=== PATIENT | male | born 1955 | race Caucasian/White ===

== ENCOUNTER 2017-02-07 10:15 | Inpatient (IN) | payer OTHER ==
[~2017-02-07] VITALS: Ht 175.3 cm; Wt 118.6 kg
[2017-02-07] VITALS (11 sets, daily range): BP systolic 99–125; BP diastolic 60–71
[~2017-02-07 10:15] MED LIST: ALLOPURINOL100 MG PO; ALPRAZOLAM0.5 MG PO; BAYER CHEWABLE81 MG PO; BENEMID500 MG PO; COLCRYS0.6 MG PO; GLUCOPHAGE XR750 MG PO; LIPITOR10 MG PO; LISINOPRIL10 MG PO; LISINOPRIL40 MG PO; LOPRESSOR50 MG PO; LOTRISONE15 GM TP; Lopressor PO; MELOXICAM15 MG PO; MELOXICAM7.5 MG PO; METFORMIN HCL500 M1 PO; NORVASC10 MG PO; PROTONIX40 MG PO; TOPROL XL100 MG PO; ZESTRIL20 MG PO; Zestril,Prinivil PO
[2017-02-07] MEDS ORDERED: OMEPRAZOLE20 MG PO (12:14)
[2017-02-07] MEDS ORDERED: MULTIVITAMIN1 EAC2 PO (12:16)
[2017-02-07] MEDS ORDERED: COLCRYS0.6 MG PO (12:17)
[2017-02-07] MEDS ORDERED: FERROUS SULFAT325 MG PO (12:17)
[2017-02-07] MEDS ORDERED: TRAMADOL HCL50 MG PO (12:17)
[2017-02-07 16:46] LABS: POINT-OF-CARE METER ID UU14188625
[2017-02-07 18:59] LABS: FERRITIN 21 NG/ML (22-322)
[2017-02-07 19:52] LABS: IRON 44 MCG/DL (35-150)
[2017-02-07 21:31] LABS: HEMATOCRIT 24.8 % (38.0-50.0); MCH 30.7 PG (29.0-34.0); MCHC 32.3 G/DL (30.0-36.0); MEAN PLAT.VOLUME 10.7 uM^3 (9.0-12.4); NRBC (%) 0.4 /100 WBC (0-0); PLATELET COUNT 175 K/uL (156-360); RBC DIS.WIDTH-CV 15.4 % (11.8-14.6); RBC DIS.WIDTH-SD 49.6 % (39-53); RED BLOOD COUNT 2.61 M/uL (4.00-5.50); WHITE BLOOD COUNT 8.1 K/uL (4.1-10.2)
[2017-02-07 21:35] LABS: INTER. NORMALIZED RATIO 1.2; PROTHROMBIN TIME 13.2 SEC (10.2-12.9)
[2017-02-07 21:38] LABS: PTT 28.8 SEC (25-37)
[2017-02-08] VITALS (7 sets, daily range): BP systolic 102–116; BP diastolic 55–69
[2017-02-08 06:21] LABS: HEMATOCRIT 26.3 % (38.0-50.0); MCH 30.1 PG (29.0-34.0); MCHC 32.3 G/DL (30.0-36.0); MCV 93.3 FL (86-99); MEAN PLAT.VOLUME 10.9 uM^3 (9.0-12.4); PLATELET COUNT 162 K/uL (156-360); RBC DIS.WIDTH-CV 15.8 % (11.8-14.6); RBC DIS.WIDTH-SD 50.9 % (39-53); RED BLOOD COUNT 2.82 M/uL (4.00-5.50); WHITE BLOOD COUNT 5.4 K/uL (4.1-10.2)
[2017-02-08 06:35] LABS: INTER. NORMALIZED RATIO 1.1; PROTHROMBIN TIME 12.8 SEC (10.2-12.9)
[2017-02-08 06:37] LABS: PTT 27.3 SEC (25-37)
[2017-02-08 06:41] LABS: ALKALINE PHOSPHATASE 81 IU/L (3-129); ANION GAP 6 MEQ/L (2-14); CHLORIDE 104 MEQ/L (99-109); GFR ESTIMATE (CALCULATED) > 59 mL/min/; GLUCOSE 152 mg/dL (70-99); SAMPLE HEMOLYSIS CHECK 0; SAMPLE ICTERIC CHECK 0; SAMPLE LIPEMIA CHECK 0; SODIUM 138 MEQ/L (136-147); UREA NITROGEN (BUN) 15 mg/dL (9-23)
[2017-02-08 06:43] LABS: TOTAL BILIRUBIN 1.2 MG/DL (0.0-1.0)
[2017-02-08 08:38] LABS: POINT-OF-CARE METER ID UU14188625
[2017-02-08 09:08] LABS: HEMATOCRIT 28.4 % (38.0-50.0); MCHC 33.1 G/DL (30.0-36.0); MCV 93.7 FL (86-99); MEAN PLAT.VOLUME 10.8 uM^3 (9.0-12.4); NRBC (%) 0.3 /100 WBC (0-0); PLATELET COUNT 186 K/uL (156-360); RBC DIS.WIDTH-CV 16.1 % (11.8-14.6); RBC DIS.WIDTH-SD 52.4 % (39-53); RED BLOOD COUNT 3.03 M/uL (4.00-5.50); WHITE BLOOD COUNT 6.2 K/uL (4.1-10.2)
[2017-02-08 13:10] LABS: POINT-OF-CARE METER ID UU13113717
[2017-02-08 15:46] LABS: POINT-OF-CARE METER ID UU14188625
[2017-02-08 15:46] LABS: HEMATOCRIT 27.2 % (38.0-50.0); MCH 30.7 PG (29.0-34.0); MCHC 32.7 G/DL (30.0-36.0); MCV 93.8 FL (86-99); MEAN PLAT.VOLUME 10.4 uM^3 (9.0-12.4); NRBC (%) 0.3 /100 WBC (0-0); PLATELET COUNT 168 K/uL (156-360); RBC DIS.WIDTH-SD 52.2 % (39-53); WHITE BLOOD COUNT 6.2 K/uL (4.1-10.2)
[2017-02-08 18:30] LABS: POINT-OF-CARE METER ID UU13113819
[2017-02-08 19:35] LABS: EOSINOPHIL (%) 2.8 % (0-5); EOSINOPHIL COUNT 0.2 K/uL (0-0.3); HEMATOCRIT 29.7 % (38.0-50.0); IMMATURE GRANULOCYTE (%) 0.8 % (0.0-0.7); IMMATURE GRANULOCYTE COUNT 0.1 K/uL; INSTRUMENT ABS NEUTROPHIL CT 6.3 K/uL; LYMPHOCYTE COUNT 1.3 K/uL (1.0-2.8); MCH 30.2 PG (29.0-34.0); MCHC 32.3 G/DL (30.0-36.0); MCV 93.4 FL (86-99); MEAN PLAT.VOLUME 10.9 uM^3 (9.0-12.4); MONOCYTE (%) 5.1 % (3-12); MONOCYTE COUNT 0.4 K/uL (0-0.8); NEUTROPHIL (%) 75.3 % (45-76); NEUTROPHIL COUNT 6.3 K/uL (1.8-6.4); PLATELET COUNT 189 K/uL (156-360); RBC DIS.WIDTH-CV 16.1 % (11.8-14.6); RBC DIS.WIDTH-SD 52.4 % (39-53); RED BLOOD COUNT 3.18 M/uL (4.00-5.50); WHITE BLOOD COUNT 8.3 K/uL (4.1-10.2)
[2017-02-08 19:36] LABS: HEMATOCRIT 29.6 % (38.0-50.0); MCH 30.5 PG (29.0-34.0); MCHC 32.4 G/DL (30.0-36.0); MEAN PLAT.VOLUME 10.8 uM^3 (9.0-12.4); PLATELET COUNT 178 K/uL (156-360); RBC DIS.WIDTH-CV 16.2 % (11.8-14.6); RBC DIS.WIDTH-SD 52.3 % (39-53); RED BLOOD COUNT 3.15 M/uL (4.00-5.50); WHITE BLOOD COUNT 8.2 K/uL (4.1-10.2)
[2017-02-08 21:46] LABS: POINT-OF-CARE METER ID UU13113717
[2017-02-09] VITALS (7 sets, daily range): BP systolic 118–134; BP diastolic 63–71
[2017-02-09 02:38] LABS: HEMATOCRIT 25.1 % (38.0-50.0); MCH 30.1 PG (29.0-34.0); MCHC 32.7 G/DL (30.0-36.0); MCV 92.3 FL (86-99); MEAN PLAT.VOLUME 10.6 uM^3 (9.0-12.4); PLATELET COUNT 163 K/uL (156-360); RBC DIS.WIDTH-CV 15.7 % (11.8-14.6); RBC DIS.WIDTH-SD 50.5 % (39-53); RED BLOOD COUNT 2.72 M/uL (4.00-5.50); WHITE BLOOD COUNT 6.1 K/uL (4.1-10.2)
[2017-02-09 06:03] LABS: EOSINOPHIL (%) 2.8 % (0-5); EOSINOPHIL COUNT 0.2 K/uL (0-0.3); HEMATOCRIT 26.8 % (38.0-50.0); IMMATURE GRANULOCYTE (%) 0.5 % (0.0-0.7); INSTRUMENT ABS NEUTROPHIL CT 4.8 K/uL; LYMPHOCYTE COUNT 0.7 K/uL (1.0-2.8); MCH 29.8 PG (29.0-34.0); MCHC 32.1 G/DL (30.0-36.0); MCV 92.7 FL (86-99); MEAN PLAT.VOLUME 10.9 uM^3 (9.0-12.4); MONOCYTE (%) 6.6 % (3-12); MONOCYTE COUNT 0.4 K/uL (0-0.8); NEUTROPHIL (%) 78.1 % (45-76); NEUTROPHIL COUNT 4.8 K/uL (1.8-6.4); NRBC (%) 0.3 /100 WBC (0-0); PLATELET COUNT 171 K/uL (156-360); RBC DIS.WIDTH-CV 15.8 % (11.8-14.6); RED BLOOD COUNT 2.89 M/uL (4.00-5.50); WHITE BLOOD COUNT 6.2 K/uL (4.1-10.2)
[2017-02-09 06:32] LABS: ANION GAP 8 MEQ/L (2-14); CHLORIDE 106 MEQ/L (99-109); GFR ESTIMATE (CALCULATED) > 59 mL/min/; GLUCOSE 142 mg/dL (70-99); POTASSIUM 4.3 MEQ/L (3.7-5.4); SAMPLE HEMOLYSIS CHECK 0; SAMPLE ICTERIC CHECK 0; SAMPLE LIPEMIA CHECK 0; SODIUM 142 MEQ/L (136-147); UREA NITROGEN (BUN) 11 mg/dL (9-23)
[2017-02-09 08:03] LABS: POINT-OF-CARE METER ID UU14174225
[2017-02-09 13:30] LABS: POINT-OF-CARE METER ID UU13113717
[2017-02-09 17:05] LABS: HEMATOCRIT 28.2 % (38.0-50.0); MCH 30.8 PG (29.0-34.0); MCV 93.4 FL (86-99); MEAN PLAT.VOLUME 10.2 uM^3 (9.0-12.4); PLATELET COUNT 172 K/uL (156-360); RBC DIS.WIDTH-CV 15.8 % (11.8-14.6); RBC DIS.WIDTH-SD 51.3 % (39-53); RED BLOOD COUNT 3.02 M/uL (4.00-5.50); WHITE BLOOD COUNT 5.4 K/uL (4.1-10.2)
[2017-02-09 17:27] LABS: POINT-OF-CARE METER ID UU13113717
[2017-02-10 00:20] VITALS: BP 135/71
[2017-02-10 01:24] LABS: HEMATOCRIT 27.4 % (38.0-50.0); MCH 30.1 PG (29.0-34.0); MCHC 32.5 G/DL (30.0-36.0); MCV 92.6 FL (86-99); MEAN PLAT.VOLUME 10.5 uM^3 (9.0-12.4); PLATELET COUNT 158 K/uL (156-360); RBC DIS.WIDTH-CV 15.7 % (11.8-14.6); RBC DIS.WIDTH-SD 50.8 % (39-53); RED BLOOD COUNT 2.96 M/uL (4.00-5.50); WHITE BLOOD COUNT 5.3 K/uL (4.1-10.2)
[2017-02-10 06:52] LABS: EOSINOPHIL (%) 3.5 % (0-5); EOSINOPHIL COUNT 0.2 K/uL (0-0.3); HEMATOCRIT 27.7 % (38.0-50.0); IMMATURE GRANULOCYTE (%) 0.4 % (0.0-0.7); INSTRUMENT ABS NEUTROPHIL CT 2.9 K/uL; MCH 29.6 PG (29.0-34.0); MCHC 31.8 G/DL (30.0-36.0); MCV 93.3 FL (86-99); MEAN PLAT.VOLUME 11.3 uM^3 (9.0-12.4); MONOCYTE (%) 8.8 % (3-12); MONOCYTE COUNT 0.4 K/uL (0-0.8); NEUTROPHIL COUNT 2.9 K/uL (1.8-6.4); PLATELET COUNT 150 K/uL (156-360); RBC DIS.WIDTH-CV 15.7 % (11.8-14.6); RBC DIS.WIDTH-SD 51.5 % (39-53); RED BLOOD COUNT 2.97 M/uL (4.00-5.50); WHITE BLOOD COUNT 4.6 K/uL (4.1-10.2)
[2017-02-10 07:17] LABS: ANION GAP 8 MEQ/L (2-14); CHLORIDE 109 MEQ/L (99-109); GFR ESTIMATE (CALCULATED) > 59 mL/min/; GLUCOSE 123 mg/dL (70-99); POTASSIUM 3.6 MEQ/L (3.7-5.4); SAMPLE HEMOLYSIS CHECK 0; SAMPLE ICTERIC CHECK 0; SAMPLE LIPEMIA CHECK 0; SODIUM 142 MEQ/L (136-147); UREA NITROGEN (BUN) 8 mg/dL (9-23)
[2017-02-10 08:04] VITALS: BP 138/76
[2017-02-10 08:22] LABS: POINT-OF-CARE METER ID UU14188625
[2017-02-10 11:03] LABS: HEMATOCRIT 28.4 % (38.0-50.0); MCH 29.9 PG (29.0-34.0); MCV 93.4 FL (86-99); MEAN PLAT.VOLUME 10.4 uM^3 (9.0-12.4); PLATELET COUNT 149 K/uL (156-360); RBC DIS.WIDTH-CV 15.6 % (11.8-14.6); RBC DIS.WIDTH-SD 51.8 % (39-53); RED BLOOD COUNT 3.04 M/uL (4.00-5.50); WHITE BLOOD COUNT 4.1 K/uL (4.1-10.2)
[2017-02-10 12:39] LABS: POINT-OF-CARE METER ID UU13113717
[2017-02-10 15:51] LABS: HEMATOCRIT 27.6 % (38.0-50.0); MCH 29.3 PG (29.0-34.0); MCHC 31.2 G/DL (30.0-36.0); MCV 93.9 FL (86-99); MEAN PLAT.VOLUME 10.3 uM^3 (9.0-12.4); PLATELET COUNT 160 K/uL (156-360); RBC DIS.WIDTH-CV 15.2 % (11.8-14.6); RED BLOOD COUNT 2.94 M/uL (4.00-5.50); WHITE BLOOD COUNT 4.6 K/uL (4.1-10.2)
[2017-02-10 16:09] VITALS: BP 134/77
[2017-02-10 17:36] LABS: POINT-OF-CARE METER ID UU13113717
[2017-02-11 00:06] VITALS: BP 159/73
[2017-02-11 03:00] LABS: HEMATOCRIT 29.1 % (38.0-50.0); MCH 29.9 PG (29.0-34.0); MCHC 32.3 G/DL (30.0-36.0); MCV 92.7 FL (86-99); MEAN PLAT.VOLUME 10.5 uM^3 (9.0-12.4); PLATELET COUNT 171 K/uL (156-360); RBC DIS.WIDTH-CV 15.1 % (11.8-14.6); RBC DIS.WIDTH-SD 50.4 % (39-53); RED BLOOD COUNT 3.14 M/uL (4.00-5.50); WHITE BLOOD COUNT 7.3 K/uL (4.1-10.2)
[2017-02-11 07:28] LABS: EOSINOPHIL (%) 3.5 % (0-5); EOSINOPHIL COUNT 0.2 K/uL (0-0.3); HEMATOCRIT 27.2 % (38.0-50.0); IMMATURE GRANULOCYTE (%) 0.4 % (0.0-0.7); INSTRUMENT ABS NEUTROPHIL CT 4.1 K/uL; LYMPHOCYTE COUNT 0.7 K/uL (1.0-2.8); MCH 29.9 PG (29.0-34.0); MCV 93.5 FL (86-99); MEAN PLAT.VOLUME 10.8 uM^3 (9.0-12.4); MONOCYTE (%) 7.6 % (3-12); MONOCYTE COUNT 0.4 K/uL (0-0.8); NEUTROPHIL (%) 74.5 % (45-76); NEUTROPHIL COUNT 4.1 K/uL (1.8-6.4); PLATELET COUNT 163 K/uL (156-360); RBC DIS.WIDTH-CV 14.8 % (11.8-14.6); RBC DIS.WIDTH-SD 49.9 % (39-53); RED BLOOD COUNT 2.91 M/uL (4.00-5.50); WHITE BLOOD COUNT 5.4 K/uL (4.1-10.2)
[2017-02-11 08:01] VITALS: BP 139/67
[2017-02-11 08:01] LABS: POINT-OF-CARE METER ID UU14188625
[2017-02-11 12:00] LABS: POINT-OF-CARE METER ID UU14188625
[2017-02-11] MEDS ORDERED: PANTOPRAZOLE SO40 MG PO (14:04)
[2017-02-11] MEDS ORDERED: SUCRALFATE1 GM PO (14:04)
== END 2017-02-11 16:50 | disposition home or self-care (01) | DRG 378 ==
LOC: EME 10:15 → ENRESERV 11:56 → EDOF 11:56 → 5SOUTH 11:56 → ENRESERV 12:20 → 5SOUTH 14:33
PROVIDERS: Hospitalist; Internal Medicine; Internal Medicine Gastroenterology; Specialist; Student in an Organized Health Care Education/Training Program
PROC: 30253N1 (ICD-10-PCS; 2017-02-07)
PROC: 3E0G8GC Introduction of Other Therapeutic Substance into Upper GI, Via Natural or Artificial Opening Endoscopic (ICD-10-PCS; principal; 2017-02-08)
DX: K26.4 Chronic or unspecified duodenal ulcer with hemorrhage (principal); D64.9 Anemia, unspecified; I10 Essential (primary) hypertension; K44.9 Diaphragmatic hernia without obstruction or gangrene; E11.9 Type 2 diabetes mellitus without complications; E78.5 Hyperlipidemia, unspecified; M10.9 Gout, unspecified; R53.1 Weakness; M19.90 Unspecified osteoarthritis, unspecified site; G47.30 Sleep apnea, unspecified; I47.1 Supraventricular tachycardia; I42.9 Cardiomyopathy, unspecified; R01.1 Cardiac murmur, unspecified; Z88.6 Allergy status to analgesic agent; Z87.891 Personal history of nicotine dependence; D62 Acute posthemorrhagic anemia; K29.70 Gastritis, unspecified, without bleeding
CPT/HCPCS: 36415; 80048; 80053; 80061; 82043; 82570; 82728; 82746; 82948; 83036; 83540; 84466; 85014; 85018; 85025; 85027; 85610; 85730; 86850; 86900; 86901; 86920; 93005; 99281; 99285; C9113; G0103; J1815; J7042; P9016

== ENCOUNTER → 2017-04-18 | Outpatient (CLI) | payer OTHER ==
[~2017-04-18] MED LIST changes: +FERROUS SULFAT325 MG PO; +MULTIVITAMIN1 EAC2 PO; +OMEPRAZOLE20 MG PO; +PANTOPRAZOLE SO40 MG PO; +SUCRALFATE1 GM PO; +TRAMADOL HCL50 MG PO
[2017-04-20 17:45] LABS: Flow Clinical Information NOT PROVIDED (()); Flow Number of Markers 22 (()); Flow Spec Viability 66 % (())
== END | disposition home or self-care (01) ==
LOC: OPR 08:22 → EDSTATUS 09:00
PROVIDERS: Specialist
DX: R19.09 Other intra-abdominal and pelvic swelling, mass and lump (principal); I10 Essential (primary) hypertension; E11.9 Type 2 diabetes mellitus without complications; G47.30 Sleep apnea, unspecified; D64.9 Anemia, unspecified; I47.1 Supraventricular tachycardia
CPT/HCPCS: 77012; 82948; 88305; J3010

== ENCOUNTER 2017-08-27 18:12 | Inpatient (IN) | payer OTHER ==
[~2017-08-27] VITALS: Ht 175.3 cm; Wt 123.9 kg
[~2017-08-27 18:12] MED LIST changes: +B-12500 MC1 SL
[2017-08-27 18:32] LABS: HEMATOCRIT 35.9 % (38.0-50.0); HEMOGLOBIN 11.6 G/DL (12.5-16.6); MCH 28.6 PG (29.0-34.0); MCHC 32.3 G/DL (30.0-36.0); MCV 88.4 FL (86-99); NRBC (%) 0.4 /100 WBC (0-0); PLATELET COUNT 189 K/uL (156-360); RBC DIS.WIDTH-CV 21.2 % (11.8-14.6); RED BLOOD COUNT 4.06 M/uL (4.00-5.50); WHITE BLOOD COUNT 8.5 K/uL (4.1-10.2)
[2017-08-27 18:42] LABS: CHLORIDE 109 mEq/L (99-109); POTASSIUM 5.3 mEq/L (3.7-5.4)
[2017-08-27 18:43] LABS: SODIUM 142 mEq/L (136-147)
[2017-08-27 18:44] LABS: GLUCOSE 124 mg/dL (70-99)
[2017-08-27 18:48] LABS: CREATININE 1.2 mg/dL (0.6-1.3); GFR ESTIMATE (CALCULATED) > 59 mL/min/ (58.99-99999)
[2017-08-27 18:49] LABS: UREA NITROGEN (BUN) 10 mg/dL (9-23)
[2017-08-27 18:53] LABS: TROP-I INTERPRETATION NEGATIVE; TROPONIN-I < 0.01 ng/mL (0.0-0.30)
[2017-08-27 20:24] LABS: BASE EXCESS -0.6 mEq/L (-3 to +3); BICARBONATE 22.1 mEq/L (22-26); CARBOXY HGB 1.2 % (0-5); METHEMOGLOBIN 0.7 % (0-1.5); PCO2 29 mm Hg (35-45); PO2 60 mm Hg (80-100); pH 7.49 (7.35-7.45)
[2017-08-27 20:25] LABS: COMMENTS - BLOOD GASES C+; DEVICE NC; O2 FLOW 4 L/MIN; SITE LR; TOTAL RESP RATE 27 resp/min
[2017-08-27] MEDS ORDERED: ZYLOPRIM300 MG PO (21:03)
[2017-08-27] MEDS ORDERED: TYLENOL EXTRA500 MG PO (21:07)
[2017-08-27] MEDS ORDERED: TUMS500 MG PO (21:07)
[2017-08-27 21:51] LABS: ALBUMIN 4.1 g/dL (3.2-4.8)
[2017-08-27 21:54] LABS: TOTAL PROTEIN 7.8 g/dL (6.4-8.3)
[2017-08-27 21:56] LABS: TOTAL BILIRUBIN 0.8 mg/dL (0.0-1.0)
[2017-08-27 21:57] LABS: ALKALINE PHOSPHATASE 126 IU/L (3-129)
[2017-08-27 21:59] LABS: AST (GOT) 34 IU/L (2-34); DIRECT BILIRUBIN 0.2 mg/dL (0.0-0.3)
[2017-08-27 22:00] LABS: ALT (GPT) 31 IU/L (3-49)
[2017-08-28 00:20] VITALS: BP 123/59
[2017-08-28 03:51] VITALS: BP 123/59
[2017-08-28 05:21] LABS: HEMATOCRIT 29.6 % (38.0-50.0); MCH 27.5 PG (29.0-34.0); MCHC 32.1 G/DL (30.0-36.0); MCV 85.8 FL (86-99); RBC DIS.WIDTH-CV 21.3 % (11.8-14.6); RBC DIS.WIDTH-SD 66.2 % (39-53); RED BLOOD COUNT 3.45 M/uL (4.00-5.50); WHITE BLOOD COUNT 7.7 K/uL (4.1-10.2)
[2017-08-28 05:33] LABS: HEMOGLOBIN 9.5 G/DL (12.5-16.6)
[2017-08-28 05:35] LABS: BASOPHIL (%) 0.3 % (0-1); EOSINOPHIL (%) 0.5 % (0-5); IMMATURE GRANULOCYTE (%) 0.4 % (0.0-0.7); LYMPHOCYTE (%) 8.7 % (15-42); LYMPHOCYTE COUNT 0.7 K/uL (1.0-2.8); MONOCYTE (%) 4.6 % (3-12); MONOCYTE COUNT 0.4 K/uL (0-0.8); NEUTROPHIL (%) 85.5 % (45-76); NEUTROPHIL COUNT 6.6 K/uL (1.8-6.4); PLATELET COUNT 128 K/uL (156-360)
[2017-08-28 05:39] LABS: CHLORIDE 108 MEQ/L (99-109); CREATININE 1.2 MG/DL (0.6-1.3); GFR ESTIMATE (CALCULATED) > 59 mL/min/ (58.99-99999); GLUCOSE 184 mg/dL (70-99); SODIUM 140 MEQ/L (136-147); UREA NITROGEN (BUN) 14 mg/dL (9-23)
[2017-08-28 05:45] LABS: POTASSIUM 4.2 MEQ/L (3.7-5.4)
[2017-08-28 07:40] VITALS: BP 116/58
[2017-08-28 11:52] VITALS: BP 111/56
[2017-08-28 17:06] VITALS: BP 112/57
[2017-08-28 19:45] VITALS: BP 103/50
[2017-08-28] MEDS ORDERED: COLCRYS0.6 MG PO (21:12)
[2017-08-29] VITALS (7 sets, daily range): BP systolic 102–144; BP diastolic 53–73
[2017-08-29 05:21] LABS: APPEARANCE CLEAR ((CLEAR)); BILIRUBIN NEGATIVE; BLOOD NEGATIVE; COLOR YELLOW ((YELLOW)); GLUCOSE (STRIP) NEGATIVE; KETONES NEGATIVE; LEUKOCYTES NEGATIVE; NITRITE NEGATIVE; PROTEIN (STRIP) NEGATIVE; SPECIFIC GRAVITY 1.023 (1.000-1.030); UCUL ADDED? NO; UROBILINOGEN 0.2 MG/DL (0.2-1.0)
[2017-08-29 09:42] LABS: BASOPHIL (%) 0.1 % (0-1); EOSINOPHIL (%) 0 % (0-5); HEMOGLOBIN 9.2 G/DL (12.5-16.6); IMMATURE GRANULOCYTE (%) 1.2 % (0.0-0.7); LYMPHOCYTE (%) 10.7 % (15-42); MCH 27.7 PG (29.0-34.0); MCHC 31.7 G/DL (30.0-36.0); MCV 87.3 FL (86-99); MONOCYTE (%) 9.9 % (3-12); MONOCYTE COUNT 0.9 K/uL (0-0.8); NEUTROPHIL (%) 78.1 % (45-76); NEUTROPHIL COUNT 7.2 K/uL (1.8-6.4); PLATELET COUNT 166 K/uL (156-360); RBC DIS.WIDTH-CV 21.6 % (11.8-14.6); RBC DIS.WIDTH-SD 68.3 % (39-53); RED BLOOD COUNT 3.32 M/uL (4.00-5.50); WHITE BLOOD COUNT 9.2 K/uL (4.1-10.2)
[2017-08-29 10:18] LABS: CHLORIDE 107 MEQ/L (99-109); CREATININE 1.2 MG/DL (0.6-1.3); GFR ESTIMATE (CALCULATED) > 59 mL/min/ (58.99-99999); GLUCOSE 227 mg/dL (70-99); POTASSIUM 4.5 MEQ/L (3.7-5.4); SODIUM 138 MEQ/L (136-147); UREA NITROGEN (BUN) 21 mg/dL (9-23)
[2017-08-30 04:00] VITALS: BP 161/74
[2017-08-30 08:38] VITALS: BP 141/67
[2017-08-30 11:33] VITALS: BP 151/70
[2017-08-30] MEDS ORDERED: AUGMENTIN875 MG PO (12:56)
== END 2017-08-30 13:59 | disposition home or self-care (01) | DRG 193 ==
LOC: EME 18:12 → EDOF 22:57 → 4EAST 22:57 → ENRESERV 23:00 → 4EAST 08-28 00:17 → ENPENDDIS 08-30 → 4EAST 08-30 13:59
PROVIDERS: Emergency Medicine; Hospitalist; Internal Medicine
PROC: 5A09357 Assistance with Respiratory Ventilation, Less than 24 Consecutive Hours, Continuous Positive Airway Pressure (ICD-10-PCS; principal; 2017-08-27)
DX: J15.9 Unspecified bacterial pneumonia (principal); J96.21 Acute and chronic respiratory failure with hypoxia; C49.A3 Gastrointestinal stromal tumor of small intestine; J91.8 Pleural effusion in other conditions classified elsewhere; E11.9 Type 2 diabetes mellitus without complications; I47.1 Supraventricular tachycardia; J81.1 Chronic pulmonary edema; T45.1X5A Adverse effect of antineoplastic and immunosuppressive drugs, initial encounter; E66.01 Morbid (severe) obesity due to excess calories; Z68.41 Body mass index [BMI] 40.0-44.9, adult; I11.9 Hypertensive heart disease without heart failure; M19.90 Unspecified osteoarthritis, unspecified site; M10.9 Gout, unspecified; G47.33 Obstructive sleep apnea (adult) (pediatric); E78.5 Hyperlipidemia, unspecified; D64.9 Anemia, unspecified; K26.9 Duodenal ulcer, unspecified as acute or chronic, without hemorrhage or perforation; Z79.899 Other long term (current) drug therapy; Z79.84 Long term (current) use of oral hypoglycemic drugs
CPT/HCPCS: 36415; 36600; 71045; 71046; 71275; 80047; 80048; 80053; 80076; 80202; 81003; 82803; 82948; 83605; 83880; 84484; 85025; 85027; 87040; 87070; 87205; 87449; 87502; 93005; 93306; 93970; 94002; 94640; 94640 76; 94660; 94760; 94799; 96360; 96361; 99202; 99281; 99285; J1650; J1815; J2060; J2543; J2930; J3370; J7030; J7050; J7512

== ENCOUNTER → 2017-11-07 | Outpatient (CLI) | payer OTHER ==
[~2017-11-07] VITALS: Ht 175.3 cm; Wt 116.3 kg
[~2017-11-07] MED LIST changes: +AUGMENTIN875 MG PO; +LOVENOX100 MG/1 M SC; +STOOL SOFTNER; +TPN IV; +TUMS500 MG PO; +TYLENOL EXTRA500 MG PO; +ZYLOPRIM300 MG PO; +[UNRECOGNIZED DRUG - REMARK]; +[UNRECOGNIZED DRUG - REMARK]
[2017-11-07 07:06] VITALS: BP 123/58
== END | disposition home or self-care (01) ==
LOC: IVINF 06:40
DX: Z45.2 Encounter for adjustment and management of vascular access device (principal)
CPT/HCPCS: 36593; 71045; J2997

== ENCOUNTER 2017-11-20 07:14 | Emergency (ER) | payer OTHER ==
[~2017-11-20] VITALS: Ht 175.3 cm; Wt 107.8 kg
[2017-11-20 08:05] LABS: BASOPHIL (%) 0.1 % (0-1); EOSINOPHIL (%) 0.8 % (0-5); EOSINOPHIL COUNT 0.1 K/uL (0-0.3); HEMATOCRIT 28.8 % (38.0-50.0); HEMOGLOBIN 9.2 G/DL (12.5-16.6); IMMATURE GRANULOCYTE (%) 0.1 % (0.0-0.7); LYMPHOCYTE (%) 5.4 % (15-42); LYMPHOCYTE COUNT 0.4 K/uL (1.0-2.8); MCH 27.9 PG (29.0-34.0); MCHC 31.9 G/DL (30.0-36.0); MCV 87.3 FL (86-99); MONOCYTE (%) 7.9 % (3-12); MONOCYTE COUNT 0.6 K/uL (0-0.8); NEUTROPHIL (%) 85.7 % (45-76); NEUTROPHIL COUNT 6.5 K/uL (1.8-6.4); PLATELET COUNT 158 K/uL (156-360); RBC DIS.WIDTH-CV 14.8 % (11.8-14.6); RBC DIS.WIDTH-SD 47.4 % (39-53); WHITE BLOOD COUNT 7.6 K/uL (4.1-10.2)
[2017-11-20 08:13] LABS: INTER. NORMALIZED RATIO 1.1
[2017-11-20 08:50] LABS: ALBUMIN 3.4 G/DL (3.2-4.8); ALKALINE PHOSPHATASE 96 IU/L (3-129); ALT (GPT) 32 IU/L (3-49); AST (GOT) 36 IU/L (2-34); CHLORIDE 104 MEQ/L (99-109); CREATININE 0.8 MG/DL (0.6-1.3); GFR ESTIMATE (CALCULATED) > 59 mL/min/ (58.99-99999); GLUCOSE 227 mg/dL (70-99); LIPASE 63 U/L (1.0-51.0); POTASSIUM 3.7 MEQ/L (3.7-5.4); SODIUM 139 MEQ/L (136-147); TOTAL BILIRUBIN 0.6 MG/DL (0.0-1.0); TOTAL PROTEIN 6.1 G/DL (6.4-8.3); UREA NITROGEN (BUN) 18 mg/dL (9-23)
[2017-11-20] MEDS ORDERED: OXAYDO5 MG PO (09:27)
[2017-11-20] MEDS ORDERED: HUMULIN R100 UNITS/ SQ (09:28)
[2017-11-20 10:19] LABS: APPEARANCE CLEAR ((CLEAR)); BILIRUBIN NEGATIVE; BLOOD NEGATIVE; COLOR YELLOW ((YELLOW)); GLUCOSE (STRIP) 50; KETONES NEGATIVE; LEUKOCYTES NEGATIVE; NITRITE NEGATIVE; PROTEIN (STRIP) NEGATIVE; SPECIFIC GRAVITY 1.019 (1.000-1.030); UCUL ADDED? NO; UROBILINOGEN 0.2 MG/DL (0.2-1.0)
[2017-11-20] MEDS ORDERED: FLAGYL500 MG PO (13:18)
[2017-11-20] MEDS ORDERED: CEFDINIR300 MG PO (13:18)
[2017-11-20 14:23] VITALS: BP 148/82
== END 2017-11-20 14:10 | disposition home or self-care (01) ==
LOC: EME 07:14
PROVIDERS: Emergency Medicine
DX: K52.9 Noninfective gastroenteritis and colitis, unspecified (principal); Z98.890 Other specified postprocedural states; Z90.411 Acquired partial absence of pancreas; E78.5 Hyperlipidemia, unspecified; G47.30 Sleep apnea, unspecified; I10 Essential (primary) hypertension; M10.9 Gout, unspecified; D64.9 Anemia, unspecified; Z88.6 Allergy status to analgesic agent
CPT/HCPCS: 71045; 74177; 80053; 81003; 83690; 85025; 85610; 99281; 99285; J2270; J2405; J3010; J7030